=== PATIENT | male | born 1970 | race American Indian/Alaskan Native ===

== ENCOUNTER 2019-03-08 04:36 | Emergency (ER) | payer OTHER ==
[2019-03-08 06:07] LABS: Basophils # (Auto) 0.1 K/mm3 (0.0-0.1); Basophils % (Auto) 0.5 % (0.0-1.8); Eosinophils # (Auto) 0.2 K/mm3 (0.0-0.4); Eosinophils % (Auto) 1.2 % (0.0-4.3); Hematocrit 44.5 % (35.5-45.6); Hemoglobin 14.9 gm/dl (11.8-15.2); Lymphocytes # (Auto) 1.3 K/mm3 (1.2-5.4); Lymphocytes % (Auto) 10.5 % (13.4-35.0); Mean Corpuscular HGB Conc 34 % (32-34); Mean Corpuscular Volume 88 fl (84-94); Monocytes # (Auto) 1.1 K/mm3 (0.0-0.8); Monocytes % (Auto) 8.2 % (0.0-7.3); Platelet Count 327 K/mm3 (140-440); Red Blood Count 5.04 M/mm3 (3.65-5.03)
[2019-03-08 06:36] LABS: Alanine Aminotransferase 18 units/L (7-56); Albumin 4.5 g/dL (3.9-5); BUN/Creatinine Ratio 13; Blood Urea Nitrogen 12 mg/dL (9-20); Calcium 9.3 mg/dL (8.4-10.2); Hemolysis Index 16
[2019-03-08 07:20] LABS: Bilirubin,Urine NEG (Negative); Blood,Urine NEG (Negative); Color,Urine Yellow (Yellow); Protein,Urine <15 mg/dL mg/dL (Negative); WBC,Urine < 1.0 /HPF (0.0-6.0)
[2019-03-08] MEDS ORDERED: KETOROLAC 60 MG/2 ML INJ IM ONE (08:15)
--- NOTE | 2019-03-08 08:59 | Emergency Department Report ---
ED Abdominal Pain HPI - General Chief Complaint: Abdominal Pain Stated Complaint: LT SIDE ABD PAIN Time Seen by Provider: 03/08/19 07:34 Source: patient Mode of arrival: Ambulatory Limitations: No Limitations - History of Present Illness Initial Comments: 48 yo male with c/o LLQ pain radiating to his back x 3 days. Pain comes and goes and worsens with urination. He denies fever nausea and vomiting . Pain 8/10 when it comes. PMH of Asthma. MD Complaint: abdominal pain -: Gradual Location: LLQ Radiation: L flank Severity: moderate Severity scale (0 -10): 9 Quality: sharp Consistency: intermittent Improves With: nothing Worsens With: other (urination ) Associated Symptoms: denies: nausea, vomiting, diarrhea, chills, constipation - Related Data Previous Rx's Medication Instructions Recorded Last Taken Type Ciprofloxacin HCl [Ciprofloxacin 500 mg PO Q12HR #7 tablet 03/08/19 Unknown Rx TAB] Ciprofloxacin HCl [Ciprofloxacin 500 mg PO Q12HR 7 Days #14 tab 03/08/19 Unknown Rx TAB] Docusate Sodium [Colace] 100 mg PO BID #30 capsule 03/08/19 Unknown Rx metroNIDAZOLE [Flagyl] 500 mg PO Q8HR 7 Days #21 tablet 03/08/19 Unknown Rx traMADoL [Ultram] 50 mg PO Q6HR PRN #15 tablet 03/08/19 Unknown Rx Allergies Allergy/AdvReac Type Severity Reaction Status Date / Time Penicillins Allergy Hives Verified 03/08/19 05:40 ED Review of Systems ROS: Stated complaint: LT SIDE ABD PAIN Other details as noted in HPI Comment: All other systems reviewed and negative Constitutional: denies: no symptoms reported, chills, fever ENT: denies: ear pain, throat pain Cardiovascular: denies: chest pain Gastrointestinal: abdominal pain. denies: nausea, vomiting, diarrhea, constipation Genitourinary: dysuria. denies: hematuria, discharge, testicular pain, testicular mass Musculoskeletal: other (left flank pain ) Skin: denies: rash, lesions Psychiatric: denies: anxiety, depression ED Past Medical Hx - Past Medical History Previous Medical History?: Yes Hx Asthma: Yes Additional medical history: Colon polyps - Surgical History Past Surgical History?: Yes Additional Surgical History: Both knees. - Social History Smoking Status: Current Every Day Smoker - Medications Home Medications: Home Medications Medication Instructions Recorded Confirmed Last Taken Type Ciprofloxacin HCl [Ciprofloxacin 500 mg PO Q12HR #7 tablet 03/08/19 Unknown Rx TAB] Ciprofloxacin HCl [Ciprofloxacin 500 mg PO Q12HR 7 Days #14 tab 03/08/19 Unknown Rx TAB] Docusate Sodium [Colace] 100 mg PO BID #30 capsule 03/08/19 Unknown Rx metroNIDAZOLE [Flagyl] 500 mg PO Q8HR 7 Days #21 tablet 03/08/19 Unknown Rx traMADoL [Ultram] 50 mg PO Q6HR PRN #15 tablet 03/08/19 Unknown Rx ED Physical Exam - General Limitations: No Limitations General appearance: alert, in no apparent distress - Head Head exam: Absent: atraumatic - Eye Eye exam: Present: normal appearance. Absent: scleral icterus - ENT ENT exam: Present: normal exam, mucous membranes moist - Neck Neck exam: Present: normal inspection - Respiratory Respiratory exam: Present: normal lung sounds bilaterally. Absent: respiratory distress, wheezes, rales, rhonchi - Cardiovascular Cardiovascular Exam: Present: regular rate - GI/Abdominal GI/Abdominal exam: Present: soft, hypoactive bowel sounds. Absent: distended, tenderness, guarding, rebound - Extremities Exam Extremities exam: Present: normal inspection - Back Exam Back exam: Present: normal inspection - Neurological Exam Neurological exam: Present: alert, oriented X3 - Psychiatric Psychiatric exam: Present: normal affect - Skin Skin exam: Present: warm, dry, intact, normal color ED Course Vital Signs 03/08/19 03/08/19 04:51 10:40 Temperature 99.7 F H 98.5 F Pulse Rate 95 H 107 H Respiratory 20 20 Rate Blood Pressure 150/100 Blood Pressure 119/95 [Right] O2 Sat by Pulse 96 97 Oximetry ED Medical Decision Making - Lab Data Result diagrams: 03/08/19 05:57 03/08/19 05:57 - Radiology Data Radiology results: report reviewed ct abd/pelvis CT PELVIS: : No significant abnormality. Osseous Structures: No significant abnormality. Additional Findings: None IMPRESSION: Acute sigmoid diverticulitis without complication - Medical Decision Making 48 yo with LLQ abd. pain VSS Labs wbc 12. 7 U[address] negative for infection CT abd.pelvis diverticulitis, without abscess or perforation Discussed with Dr. Villanueva Plan is to discharge pt home with Cipro and Flagyl, Colace and follow up with PCP. Critical care attestation.: If time is entered above; I have spent that time in minutes in the direct care of this critically ill patient, excluding procedure time. ED Disposition Clinical Impression: Diverticulitis Abdominal pain Qualifiers: Abdominal location: left lower quadrant Qualified Code(s): R10.32 - Left lower quadrant pain Disposition: TO HOME OR SELFCARE Is pt being admited?: No Does the pt Need Aspirin: No Condition: Stable Instructions: Diverticulitis (ED) Additional Instructions: Take all medication as prescribed. Drink plenty fluids. Follow up with your Doctor Dr. Garrido in 3-5 days or sooner. Return to the ER for increasing abdominal pain, fever, not able to keep food down. Prescriptions: Ciprofloxacin HCl [Ciprofloxacin TAB] 500 mg PO Q12HR #7 tablet Ciprofloxacin HCl [Ciprofloxacin TAB] 500 mg PO Q12HR 7 Days #14 tab Docusate Sodium [Colace] 100 mg PO BID #30 capsule metroNIDAZOLE [Flagyl] 500 mg PO Q8HR 7 Days #21 tablet traMADoL [Ultram] 50 mg PO Q6HR PRN #15 tablet PRN Reason: Pain Referrals: LA CEDILLO MD [Primary Care Provider] - 3-5 Days Forms: Accompanied Note, Work/School Release Form(ED) Time of Disposition: 10:11
--- NOTE | 2019-03-08 09:41 | Cat Scan Report ---
CT ABDOMEN AND PELVIS WITHOUT CONTRAST HISTORY: Left lower quadrant abdominal pain COMPARISON: None. TECHNIQUE: Axial CT images were obtained through the abdomen and pelvis without IV contrast. Sagittal and coronal reformatted images. All CT scans at this location are performed using CT dose reduction for ALARA by means of automated exposure control. FINDINGS: CT ABDOMEN: Lung Bases: Clear. Liver: No significant abnormality. Biliary: No significant abnormality. Spleen: No significant abnormality. Unenlarged. Pancreas: No significant abnormality. Adrenals: No significant abnormality. Kidneys: No significant abnormality. Lymphatics: No lymphadenopathy. Vasculature: No significant abnormality. Bowel/Peritoneum: Scattered diverticula are identified in the sigmoid region. Moderate inflammatory c hanges and wall thickening is noted in the sigmoid colon consistent with acute diverticulitis. No romel dence for free air or abscess. The remaining bowel loops including the appendix are unremarkable. CT PELVIS: : No significant abnormality. Osseous Structures: No significant abnormality. Additional Findings: None IMPRESSION: Acute sigmoid diverticulitis without complication Signer Name: Davion Serrano Jr, MD Signed: 03/08/2019 9:37 AM Workstation Name: [id number]
[2019-03-08 10:41] VITALS: BP 119/95
== END 2019-03-08 10:39 | disposition home or self-care (01) ==
LOC: ED 04:36
DX: K57.92 Diverticulitis of intestine, part unspecified, without perforation or abscess without bleeding (principal); J45.909 Unspecified asthma, uncomplicated; F17.200 Nicotine dependence, unspecified, uncomplicated
CPT/HCPCS: 36415; 74176; 80053; 81001; 85025; 96372; 99284; J1885